=== PATIENT | male | born 1960 ===

== ENCOUNTER 2018-01-25 07:01 | Day surgery (SDC) | payer OTHER ==
[~2018-01-25] VITALS: Ht 182.9 cm; Wt 93.0 kg
[~2018-01-25 07:01] MED LIST: CARBAMAZEPIN200 MG PO; MOTRIN400 MG PO
[2018-01-25 11:35] VITALS: BP 137/81
== END 2018-01-25 12:20 | DRG 352 ==
LOC: ORM 07:01
PROVIDERS: ATTEND Surgery
PROC: 0YU50JZ Supplement Right Inguinal Region with Synthetic Substitute, Open Approach (ICD-10-PCS; principal; 2018-01-25)
DX: K40.90 Unilateral inguinal hernia, without obstruction or gangrene, not specified as recurrent (principal)
CPT/HCPCS: C9290

== ENCOUNTER 2021-03-10 21:12 | Observation (INO) | payer OTHER ==
[~2021-03-10] VITALS: Ht 182.9 cm; Wt 87.0 kg
[2021-03-10 21:39] LABS: HEMATOCRIT 35.5 % (39.0-50.0); HEMOGLOBIN 12.3 g/dl (14.0-18.0); IMMATURE GRANULOCYTES 0.2 % (0.0-5.0); MEAN CELL VOLUME 95.2 fL CALC (80.0-100.0); MEAN CORPUSCULAR HGB CONC 34.6 g/dL CAL (32.0-36.0); NEUT# 4.78 thou/uL (1.82-7.42); RED BLOOD COUNT 3.73 mill/uL (4.70-6.10); RED CELL DISTRI WIDTH 12.2 % (11.5-15.5)
[2021-03-10 21:40] LABS: URINE BILIRUBIN - DIPSTICK NEGATIVE (NEGATIVE); URINE COLOR YELLOW; URINE GLUCOSE - DIPSTICK NEGATIVE (NEGATIVE); URINE KETONE NEGATIVE (NEGATIVE); URINE LEUK ESTERASE NEGATIVE (NEGATIVE); URINE PH 5.5 (4.5-8.0); URINE PROTEIN - DIPSTICK TRACE mg/dL (NEG-TRACE); URINE SPECIFIC GRAVITY >=1.030; URINE UROBILINOGEN - DIPSTICK 0.2 E.U./dL (0.2)
[2021-03-10 21:42] LABS: URINE NITRITE - DIPSTICK NEGATIVE (Negative)
[2021-03-10 21:43] LABS: URINE BLOOD DIPSTICK SMALL (NEGATIVE)
[2021-03-10] MEDS ORDERED: TRILEPTAL600 M1 PO (21:49)
[2021-03-10 21:51] LABS: URINE SQUAMOUS EPITHELIAL CELL RARE EPI/hpf (0-FEW)
--- NOTE | 2021-03-10 21:52 | NUR ---
REPORT TO AG
[2021-03-10 21:53] LABS: ALKALINE PHOSPHATASE 78 u/l (38-126); ANION GAP 14 (6-22 (CALC)); BILIRUBIN, TOTAL 0.3 mg/dL (0.0-1.4); BUN 9 mg/dL (9-20); BUN/CREATININE RATIO 14 (12-20 (CALC)); CARBON DIOXIDE 22 mmol/l (22-30); CHLORIDE 92 mmol/l (95-108); CREATININE 0.6 mg/dL (0.7-1.3); ETHYL ALCOHOL 0 mg/dl (0-30); GFR > 60 ML/MIN (>=60 (CALC)); GFR FOR AFR.AMER. > 60 ML/MIN (>=60 (CALC)); SGOT/AST 24 u/l (17-59); SODIUM 125 mmol/l (137-146); TOTAL PROTEIN 6.8 g/dL (6.3-8.2)
--- NOTE | 2021-03-10 22:30 | NUR ---
W/P/D SKIN NO SEIZURE ACTIVITY NO FOCAL DEFICITS
--- NOTE | 2021-03-10 23:55 | NUR ---
AWAKENED FROM SLEEP W/P;/D SKIN SPEECH IS CLEAR
--- NOTE | 2021-03-11 00:53 | NUR ---
W/D SKIN NO SEIZURE ACTIVITY NO FOCAL DEFICITAS SPEECH IS SLEAR PT IS A/A X3
--- NOTE | 2021-03-11 02:05 | NUR ---
W/P/D SKIN NO S/S OF SEIZURES PT JOKES WITH ME WHEN I AM IN THE ROOM PLEASANT DEM.NO FOCAL DEFICITS
--- NOTE | 2021-03-11 03:05 | NUR ---
PHONE REPORT TO NURSE TIFFANY IN ICU
--- NOTE | 2021-03-11 03:10 | NUR ---
PT TRANSPORTED TO ICE VIA WC IN STABLE CONDITIOON NO FOCAL SEFICITS NO WEAKNESSES NO S/S OF SEIZURES SEEN THIS ER STAY
[2021-03-11 03:20] VITALS: BP 140/64
--- NOTE | 2021-03-11 03:20 | NUR ---
60 yr old white male admitted as medsurg tele overflow per w/c from er. pt is [facility] inmate & is accompanied by 2 guards. transferred self to bed. bed weight obtained. personal financial advisor shows sinus darell hr 54. #18 lt hand ns infusing @ [id number]. history obtained per pt & er record. oriented to room. pt has 2 knots on lt side of forehead. no bruising seen. fall & seizure precautions initiated.
--- NOTE | 2021-03-11 04:09 | NUR ---
lab here. blood drawn.
--- NOTE | 2021-03-11 06:01 | NUR ---
no seizure activity. school lunch monitor shows sinus darell hr 54. guards x2 @ bedside. shackles cont.
[2021-03-11 06:31] LABS: ANION GAP 14 (6-22 (CALC)); BUN 8 mg/dL (9-20); BUN/CREATININE RATIO 13 (12-20 (CALC)); CARBON DIOXIDE 22 mmol/l (22-30); CHLORIDE 96 mmol/l (95-108); CREATININE 0.6 mg/dL (0.7-1.3); GFR > 60 ML/MIN (>=60 (CALC)); GFR FOR AFR.AMER. > 60 ML/MIN (>=60 (CALC)); POTASSIUM 4.4 mmol/l (3.5-5.1); SODIUM 128 mmol/l (137-146)
--- NOTE | 2021-03-11 06:45 | NUR ---
REPORT RECEIVED FROM TIFFANY CORONA. CARE ASSUMED.
[2021-03-11 07:00] VITALS: BP 124/53
--- NOTE | 2021-03-11 07:20 | NUR ---
PT RESTING IN BED AWAKE. PT IS ALERT AND ORIENTED X3. SHIFT ASSESSMENT COMPLETED AT THIS TIME. IV PATENT X1. GUARD IN ROOM. [facility]. WILL CONTINUE TO [facility].
--- NOTE | 2021-03-11 07:50 | NUR ---
PT SET UP FOR AM MEAL.
--- NOTE | 2021-03-11 08:22 | NUR ---
DR KOCH AT BEDSIDE AT THIS TIME
--- NOTE | 2021-03-11 12:00 | NUR ---
PT SITTING UP IN BED WATCHING TV. SET UP FOR NOON MEAL. GUARD IN ROOM. NO COMPLAINT VOICED AT THIS TIME. CALL LIGHT IN REACH. WILL CONTINUE TO [facility].
--- NOTE | 2021-03-11 13:50 | NUR ---
REPORT CALLED TO ELSA CORONA ON MED SURG.
--- NOTE | 2021-03-11 14:00 | NUR ---
PT TO MED SURG VIA WHEELCHAIR ACCOMPANIED BY GUARD. PT TOLERATED TRANSFER WELL.
--- NOTE | 2021-03-11 14:01 | NUR ---
PT ARRIVED FROM ICU VIA WC WITH 1 GUARD IN ATTENDENCE. PT AMBULATED TO THE BED. AND THEN SHACKLED TO THE LEFT SIDE. IV SITE IS FREE FROM REDNESS OR EDEMA.
[2021-03-11 14:08] VITALS: BP 107/65
--- NOTE | 2021-03-11 16:45 | NUR ---
PT INQUIRED ABOUT MEDICATION , AND ALSO THE SODIUM LEVEL. EXLAINED REGULAR MEDICATION HE TAKES AT THE FACILITY IS NOT AVAILABLE, WE USE SOMTETHING THAT IS COMPATIBLE. ALSO THE SODIUM LEVEL IS COMING UP WITH THE IV FLUIDS VERBALIZED UNDERSTANDING.
[2021-03-11 19:16] VITALS: BP 123/64
--- NOTE | 2021-03-11 20:00 | NUR ---
RECEIVED REPORT FROM NURSE HUNTER PATIENT RESTING IN BED WATCHING TV, ONE GUARD AT BEDSIDE, LEFT ANKLE SHAKLED TO BED, WITH ONGOING TV G18 LEFT HAND NS @ 125CC/HR INFUSING WELLJason, LBM 03/11, DENIES PAIN OR DISCOMFORTS REQUESTING SHOWER, CALL LIGHT AT REACH.
--- NOTE | 2021-03-12 00:16 | NUR ---
PATIENT RESTING IN BED WITH EYES CLSOED, BREATHING EVEN UNLABORED, GUARD INSIDE ROOM CALL LIGHT AT REACH.
--- NOTE | 2021-03-12 04:00 | NUR ---
PATIENT RESTING IN BED, WITH EYS CLSOED, ONE GUARD AT BEDSIDE, NO DISCOMFORTS NOTED AT THIS TIME, BREATHING UNLABORED, LEFT ANKLE SHAKLED TO BED, CALL LIGHT AT REACH.
[2021-03-12 04:16] VITALS: BP 116/68
[2021-03-12 05:50] LABS: ALBUMIN 3.4 g/dL (3.2-5.0); ALKALINE PHOSPHATASE 71 u/l (38-126); ANION GAP 12 (6-22 (CALC)); BILIRUBIN, TOTAL 0.2 mg/dL (0.0-1.4); BUN 12 mg/dL (9-20); BUN/CREATININE RATIO 20 (12-20 (CALC)); CARBON DIOXIDE 22 mmol/l (22-30); CHLORIDE 102 mmol/l (95-108); CREATININE 0.6 mg/dL (0.7-1.3); GFR > 60 ML/MIN (>=60 (CALC)); GFR FOR AFR.AMER. > 60 ML/MIN (>=60 (CALC)); POTASSIUM 4.5 mmol/l (3.5-5.1); SGOT/AST 24 u/l (17-59); SODIUM 131 mmol/l (137-146)
[2021-03-12 08:20] VITALS: BP 145/79
--- NOTE | 2021-03-12 08:20 | NUR ---
ASSESSMENT IS COMPLETED:IV SITE IS FREE FROM REDNESS OR EDEMA. HR IS REG,PULSES ARE STRONG X4, ABD IS SOFT WITH ACTIVE BS, 1 GUARD PRESENT IN THE ROOM. CONTINUE TO OBSERVE AND MONITOR.
[2021-03-12] MEDS ORDERED: LEVETIRACETAM500 MG PO (10:16)
--- NOTE | 2021-03-12 11:00 | NUR ---
DISCONTINUED IV SITE CATHETER INTACT. WAITING ON DISCHARGE INSTRUCTIONS.
--- NOTE | 2021-03-12 12:00 | NUR ---
PT REMAINS SITTING IN THE BED GUARD IN THE ROOM. WAITING FOR TRANSPORT.
--- NOTE | 2021-03-12 12:45 | NUR ---
TRANSPORT FROM [facility] HERE TO [facility] TENDER PT. DISCHARGE INSTRUCTIONS GIVEN AND VERBALIZED UNDERSTANDING. HANDED EVERYTHING TO THE GUARD. ADN PT TRANSPORTED OUT VIA WC WITH STAFF.
== END 2021-03-12 13:00 | DRG 101 ==
LOC: ED 21:12 → ED-I 03-11 02:00 → ICU 03-11 02:51 → ED 03-11 02:51 → MS2 03-11 02:51
PROVIDERS: Emergency Medicine; ADMIT Internal Medicine; ATTEND Internal Medicine
DX: R56.1 Post traumatic seizures (principal); E87.1 Hypo-osmolality and hyponatremia; S00.81XA Abrasion of other part of head, initial encounter; F32.9 Major depressive disorder, single episode, unspecified; E78.5 Hyperlipidemia, unspecified; B19.20 Unspecified viral hepatitis C without hepatic coma; W19.XXXA Unspecified fall, initial encounter; S09.90XS Unspecified injury of head, sequela; X58.XXXS Exposure to other specified factors, sequela; Y92.149 Unspecified place in prison as the place of occurrence of the external cause; Z79.899 Other long term (current) drug therapy; Z20.822 Contact with and (suspected) exposure to COVID-19
CPT/HCPCS: G0378